=== PATIENT | female | born 1995 | race Caucasian/White ===

== ENCOUNTER 2018-01-01 20:33 | Emergency (ER) | payer BC ==
[~2018-01-01] VITALS: Ht 170.2 cm; Wt 59.1 kg
[2018-01-01 20:37] VITALS: TEMP 98
[2018-01-01 21:43] VITALS: BP 122/69; PULSE 70
== END 2018-01-01 21:45 | disposition home or self-care (01) ==
LOC: COL.ER 20:33
DX: S61.412A Laceration without foreign body of left hand, initial encounter (principal); W26.0XXA Contact with knife, initial encounter; Y92.009 Unspecified place in unspecified non-institutional (private) residence as the place of occurrence of the external cause

== ENCOUNTER 2018-01-16 21:09 | Emergency (ER) | payer BC ==
[2018-01-16 21:27] VITALS: BP 109/69; PULSE 57; TEMP 98
== END 2018-01-16 21:28 | disposition home or self-care (01) ==
LOC: COL.ER 21:09
DX: S61.412D Laceration without foreign body of left hand, subsequent encounter (principal); X58.XXXD Exposure to other specified factors, subsequent encounter

== ENCOUNTER 2021-04-01 07:45 | Outpatient (CLI) | payer OTHER ==
[~2021-04-01] VITALS: Ht 167.6 cm; Wt 69.5 kg
[2021-04-01 08:00] VITALS: BP 96/58; PULSE 83; TEMP 98.4
[2021-04-01] MEDS ORDERED: PROTONIX20 MG PO (08:05)
--- NOTE | 2021-04-01 08:19 | NUR ---
0800 PATIENT HERE FOR COMPLAINTS OF CONTRACTIONS SINCE LAST NIGHT. EFM ON FHT 130 BABY ACTIVE. CONTRACTIONS IRREGULAR PALPATE MILD. DENIES OTHER NEEDS. DR NAVARRETE HER TO EVALUATED MONITOR STRIP. ORDERS TO WATCH FOR 20 MIN IF REACTIVE STRIP MAY SEND HOME
[2021-04-01 08:53] VITALS: PULSE 80
--- NOTE | 2021-04-01 08:57 | NUR ---
0802 ALL DISCHARGE INSTRUCTIONS GIVEN TO PATIENT AND . PATIENT WOULD RATHER GO HOME AND REST AND NO BE RECHECKED. DR NAVARRETE OK WITH THAT. RESTS DENIES NEEDS. VERBAL UNDERSTANDING NOTED.
[2021-04-02] MEDS ORDERED: TYLENOL PM EXTR1 TA1 PO (10:19)
[2021-04-02] MEDS ORDERED: TUMS500 MG (10:19)
== END 2021-04-01 08:50 | disposition home or self-care (01) ==
LOC: LDRO 07:45
DX: O62.9 Abnormality of forces of labor, unspecified (principal); Z3A.41 41 weeks gestation of pregnancy

== ENCOUNTER 2021-04-02 09:51 | Inpatient (IN) | payer OTHER ==
[2021-04-02] VITALS (29 sets, daily range): BP systolic 97–129; BP diastolic 55–77; PULSE 70–115; TEMP 98.1–98.4
[~2021-04-02] VITALS: Ht 167.6 cm; Wt 69.5 kg
[~2021-04-02 09:51] MED LIST: PROTONIX20 MG PO
[2021-04-02] MEDS ORDERED: TUMS500 MG (10:19)
[2021-04-02] MEDS ORDERED: TYLENOL PM EXTR1 TA1 PO (10:19)
[2021-04-02 10:42] LABS: BASO % 0.3 % (0.0-2.0); EOS % 0.1 % (0-4.0); GRAN # 9.8 (1.4-6.5); GRAN % 82.5 % (42.2-75.2); HEMOGLOBIN 11.6 g/dl (12.5-16.0); LYMPH # 1.2 (1.2-3.4); LYMPH % 10.1 % (20.0-51.0); MEAN CELL VOLUME 88 fl (80.0-100.0); MEAN CORPUSCULAR HEMOGLOBIN 29 pg (27.0-31.0); MEAN CORPUSCULAR HGB CONC 33 g/dl (33.0-37.0); MEAN PLATELET VOLUME 11.6 fl (7.4-10.4); MONO # 0.8 (0.1-0.6); MONO % 6.4 % (1.7-9.3); PLATELET COUNT 204 K/mm3 (130-400); RED BLOOD COUNT 4.01 M/mm3 (4.10-5.30); REDCELL DISTRIBUTION WIDTH-CV 13.9 % (11.5-14.5)
[2021-04-02 10:43] LABS: HEMATOCRIT 35.1 % (37.0-47.0)
--- NOTE | 2021-04-02 11:09 | NUR ---
1045 pt repositioned. Difficulty tracing FHR/contractions due to maternal position during epidural insertion. 1049 Test dose given per L.Marco A. Pt tolerates well. Safety precautions and plan of care discussed. LR bolus infusing.
--- NOTE | 2021-04-02 22:15 | NUR ---
2145- pt up to bathroom, unable to void at this time. pericare provided. 2204- returned to bed, straight cath performed, 400mls urine out. pericare provided, peripad and mesh underwear applied. 2214- pt transferred to ambulatory. tolerated well.
[2021-04-03 00:20] VITALS: BP 103/69; PULSE 81; TEMP 98.4
[2021-04-03 04:40] VITALS: BP 98/63; PULSE 87; TEMP 98.2
[2021-04-03 08:45] VITALS: BP 111/66; PULSE 91; TEMP 97.9
--- NOTE | 2021-04-03 09:00 | NUR ---
Rests in bed, alert. Ibuprofen 800 mg given as ordered and per request.
[2021-04-03] MEDS ORDERED: IBU800 M1 PO (09:13)
--- NOTE | 2021-04-03 11:10 | NUR ---
Ibuprofen 800 mg given per request and as ordered.
[2021-04-03 15:45] VITALS: BP 105/53; PULSE 94; TEMP 97.6
[2021-04-03 20:00] VITALS: BP 100/57; PULSE 84; TEMP 98.1
[2021-04-04 07:20] VITALS: BP 104/61; PULSE 73; TEMP 97.6
--- NOTE | 2021-04-04 11:45 | NUR ---
1145-Reviewed discharge instructions. Patient verbalized understanding. Denies questions. 1230-Escorted off unit to car with infant and significant other.
== END 2021-04-04 12:30 | disposition home or self-care (01) | DRG 807 ==
LOC: LDRO 09:51 → LDR 10:15 → OB 22:15
PROVIDERS: Obstetrics & Gynecology; ADMIT Obstetrics & Gynecology
PROC: 10E0XZZ Delivery of Products of Conception, External Approach (ICD-10-PCS; principal; 2021-04-03)
PROC: 10907ZC Drainage of Amniotic Fluid, Therapeutic from Products of Conception, Via Natural or Artificial Opening (ICD-10-PCS; 2021-04-03)
DX: O99.824 Streptococcus B carrier state complicating childbirth (principal); Z37.0 Single live birth; Z3A.41 41 weeks gestation of pregnancy; O70.1 Second degree perineal laceration during delivery
CPT/HCPCS: J2540; J2590; J7120

== ENCOUNTER 2022-09-22 06:47 | Inpatient (IN) | payer OTHER ==
[~2022-09-22] VITALS: Ht 167.6 cm; Wt 67.3 kg
[2022-09-22] VITALS (65 sets, daily range): BP systolic 92–134; BP diastolic 54–92; PULSE 56–99; TEMP 97.3–98.4
[~2022-09-22 06:47] MED LIST changes: +IBU800 M1 PO; +TUMS500 MG; +TYLENOL PM EXTR1 TA1 PO
--- NOTE | 2022-09-22 07:05 | NUR ---
0705 - PATIENT AMBULATORY TO UNIT WITH SPOUSE. PATIENT ORIENTED TO ROOM. PATIENT CHANGES INTO HOSPITAL GOWN. 0715 - PATIENT IN BED. PATIENT REPORTS TO UNIT FOR IUGR INDUCTION. PLAN OF CARE REVIEWED. PATIENT AGREEABLE TO PLAN. PATIENT PLACED ON MONITOR. PATIENT DENIES ANY CONTRACTIONS, LEAKING OF FLUID, OR BLOODY SHOW. PATIENT REPORTS GOOD MOVEMENT. 0720 - IV STARTED. LABS DRAWN ORDERED. LR INITIATED. 0725 - CONSENTS REVIEWED AND SIGNED. CARE ONGOING.
[2022-09-22] MEDS ORDERED: LEXAPRO 10MG10 MG PO (07:30)
[2022-09-22] MEDS ORDERED: ZOFRAN8 MG PO (07:30)
--- NOTE | 2022-09-22 08:10 | NUR ---
0810 - SVE PERFORMED BY THIS RN. 050/-2. NO LEAKING OF FLUID OR BLOODY SHOW ON EXAM. 0815 - PITOCIN DRIP STARTED PER PROTOCOL. ABX STARTED ORDERED. MD NATHANAEL AT BEDSIDE. PLAN OF CARE REVIEWED. PATIENT AGREEABLE TO PLAN. CARE ONGOING.
[2022-09-22 08:54] LABS: BASO % 0.4 % (0.0-2.0); EOS % 0.6 % (0.0-4.0); GRAN # 4.9 K/mm3 (1.4-6.5); GRAN % 67.8 % (42.2-75.2); HEMATOCRIT 23.8 % (37.0-47.0); HEMOGLOBIN 7.8 g/dl (12.5-16.0); LYMPH # 1.5 K/mm3 (1.2-3.4); LYMPH % 20.7 % (20.0-51.0); MEAN CELL VOLUME 89 fl (80.0-100.0); MEAN CORPUSCULAR HEMOGLOBIN 29 pg (27-31); MEAN CORPUSCULAR HGB CONC 33 g/dl (33.0-37.0); MEAN PLATELET VOLUME 12.2 fl (7.4-10.4); MONO # 0.7 K/mm3 (0.1-0.6); MONO % 9.9 % (1.7-9.3); PLATELET COUNT 129 K/mm3 (130-400); RED BLOOD COUNT 2.69 M/mm3 (4.10-5.30); REDCELL DISTRIBUTION WIDTH-CV 18.5 % (11.5-14.5)
--- NOTE | 2022-09-22 10:18 | NUR ---
1025 - PATIENT REQUESTS EPIDURAL. BOLUS INITIATED. SHELL MACHINE OPERATOR NOTIFIED. 1035 - SHELL MACHINE OPERATOR AT BEDSIDE. PATIENT POSITIONED AT EDGE OF BED. 1044 - TEST DOSE GIVEN PER SHELL MACHINE OPERATOR. 1049 - PATIENT REPOSITIONED. MONITORS ADJUSTED. CARE ONGOING.
--- NOTE | 2022-09-22 10:30 | NUR ---
1035 - FHR MONITORING INDISCERNIBLE DUE TO MATERNAL POSITION WITH EPIDURAL PLACEMENT. CARE ONGOING.
--- NOTE | 2022-09-22 10:55 | NUR ---
1056 - MD NATHANAEL AT BEDSIDE. 1057 - SVE PERFORMED BY MD NATHANAEL. /2. 1058 - AROM PERFORMED BY MD NATHANAEL WITH CLEAR FLUID NOTED. 1100 - PERICARE PERFORMED. PATIENT REPOSITIONED. CARE ONGOING.
--- NOTE | 2022-09-22 11:25 | NUR ---
1125 - Tineo catheter placed. SVE performed. . Care ongoing.
--- NOTE | 2022-09-22 12:30 | NUR ---
1230 - TOCO tracing indiscernible. TOCO adjusted. 1245 - TOCO tracing indiscernible. TOCO adjusted. Care ongoing.
--- NOTE | 2022-09-22 12:30 | NUR ---
1230 - TOCO TRACING INDISCERNIBLE DUE TO MATERNAL POSITION. PATIENT REPOSITIONED. TOCO ADJUSTED.
--- NOTE | 2022-09-22 13:40 | NUR ---
1340 - SVE performed by COURTNEY Curtis. /2. Care ongoing.
--- NOTE | 2022-09-22 14:30 | NUR ---
1430 - TOCO indiscernible. TOCO adjusted. Care ongoing.
--- NOTE | 2022-09-22 14:35 | NUR ---
1435 - SVE performed by this RN. 2. TOCO tracing indiscernible. Patient repositioned. TOCO adjusted. Care ongoing.
--- NOTE | 2022-09-22 15:15 | NUR ---
1500 - TOCO tracing indiscernible due to maternal position. TOCO adjusted. Care ongoing.
--- NOTE | 2022-09-22 15:42 | NUR ---
1542 - Recurrent late decels noted. Patient positioned in knees chest. 1550 - Decels continue. Pitocin turned off. Patient continues in knees chest. 1600 - Patient continues in knees chest. 1604 - Patient positioned RL LLS. Care ongoing.
--- NOTE | 2022-09-22 16:00 | NUR ---
Mirtha Harkins MD updated on patient status via phone. MD given report of latest SVE /-2, recurrent late decels and pitocin cut in half and then turned off and patient positioning in knees chest. states to resume pitocin after a short break as FHR continues to have moderate variability. Care ongoing.
--- NOTE | 2022-09-22 17:30 | NUR ---
8433 - MD Shahana called with update. Most recent SVE /-2. Pitocin gtt at 6mu/min. No new orders at this time. Care ongoing.
--- NOTE | 2022-09-22 22:10 | NUR ---
Pt reports feeling vaginal and rectal pressure and states she can feel the baby coming. SVE /-1. Pt with urge to push with contractions. Dr. Harkins notified.
--- NOTE | 2022-09-22 22:38 | NUR ---
2224 - Dr. Harkins at bedside and nursery RN Renee Salazar at bedside. SVE complete/+2. Room set up for delivery. Pt educated on pushing position and techniques. 223 - Tineo catheter out. [address] Harkins gowned and gloved at perineum. 223 - Initial push at this time. Good maternal effort. 223 - Deceleration down to 70 bpm after contraction. Delivery imminent 2237 - Spontaneous delivery of viable infant girl. Infant bulb suctioned by Dr. Harkins at perineum. then placed to mother's abdomen, care of assumed to COURTNEY Marcus. Cord clamped x [address] Harkins and cut by FOB. Pitocin off. Cord blood obtained. 2240 - Spontaneous delivery of intact placenta. Pitocin restarted at 333 mL/hr. Fundus boggy and down 2 from umbilicus, firms with massage. Moderate amount of bleeding with massage. 2nd degree laceration repaired by Dr. Harkins. EBL [address] Harkins. Epidural off. 2244 - Fundus firm and down 1 from umbilicus, minimal bleeding noted. Pericare provided. New chux beneath patient and ice pack to perineum. Pt repositioned in bed for comfort. recovery started. See physician delivery note.
[2022-09-23 00:15] VITALS: BP 138/74; PULSE 104
[2022-09-23 00:45] VITALS: BP 106/61; PULSE 74
--- NOTE | 2022-09-23 01:40 | NUR ---
Pt able to lift and hold each leg off of bed for 5 seconds and would like to be transferred to room. Pt positioned to sitting on edge of bed. Epidural catheter removed. Tip smooth, blue, and intact. Pt able to ambulate to bathroom independently. Pt unable to void at this time and states she feels nauseous and very weak. Pericare provided. Clean gown, mesh panties, and peripad on. Pt to wheelchair for transport to room 214 with belongings. Pt to bed in 214, encouraged patient to rest in bed for another 1-2 hours, then may try to void again. Educated on need of 3 measured voids before IV removal, verbalized understanding.
[2022-09-23 01:45] VITALS: BP 107/65; PULSE 90
[2022-09-23 08:30] VITALS: BP 110/81; PULSE 77; TEMP 97.3
[2022-09-23] MEDS ORDERED: IBU800 M1 PO (08:33)
--- NOTE | 2022-09-23 09:29 | NUR ---
Initial visit; Mom thanked [facility]n Home [facility] for offering congratulations and God's blessings for the of her daughter. Rn Home [facility] thanked patient for choosing our hospital.
[2022-09-23 17:00] VITALS: BP 108/68; PULSE 99; TEMP 98.2
[2022-09-23 19:00] VITALS: BP 109/73; PULSE 81; TEMP 97.4
[2022-09-24 07:20] VITALS: BP 106/71; PULSE 85; TEMP 97.7
== END 2022-09-24 15:25 | disposition home or self-care (01) | DRG 807 ==
LOC: LDR 06:47 → OB 06:47
PROVIDERS: ADMIT Obstetrics & Gynecology
PROC: 10E0XZZ Delivery of Products of Conception, External Approach (ICD-10-PCS; principal; 2022-09-22)
PROC: 0KQM0ZZ Repair Perineum Muscle, Open Approach (ICD-10-PCS; 2022-09-22)
PROC: 3E033VJ Introduction of Other Hormone into Peripheral Vein, Percutaneous Approach (ICD-10-PCS; 2022-09-22)
DX: O36.5930 Maternal care for other known or suspected poor fetal growth, third trimester, not applicable or unspecified (principal); Z37.0 Single live birth; O99.824 Streptococcus B carrier state complicating childbirth; Z3A.39 39 weeks gestation of pregnancy; O69.81X0 Labor and delivery complicated by cord around neck, without compression, not applicable or unspecified; O70.1 Second degree perineal laceration during delivery; O99.344 Other mental disorders complicating childbirth; F41.9 Anxiety disorder, unspecified; F32.A Depression, unspecified; Z23 Encounter for immunization
CPT/HCPCS: J2405; J2540; J2590; J7120